=== PATIENT | female | born 1950 | race African-American/Black ===

== ENCOUNTER 2017-06-20 20:40 | Emergency (ER) | payer MEDICARE, OTHER ==
[~2017-06-20] VITALS: Ht 162.6 cm; Wt 69.4 kg
[~2017-06-20 20:40] MED LIST: BUPR300T52 PO; DULO60CA44 PO; LORA2TAB2 PO; ZOLP10TA6 PO
[2017-06-21] MEDS ORDERED: ACETAMINOPHEN 325MG TABLET PO ONE
[2017-06-21 05:08] VITALS: BP 120/75
== END 2017-06-21 05:10 | disposition home or self-care (01) ==
LOC: ER 20:40
DX: R55 Syncope and collapse (principal); S00.83XA Contusion of other part of head, initial encounter; W01.0XXA Fall on same level from slipping, tripping and stumbling without subsequent striking against object, initial encounter; R03.0 Elevated blood-pressure reading, without diagnosis of hypertension; Y93.H2 Activity, gardening and landscaping; Y92.017 Garden or yard in single-family (private) house as the place of occurrence of the external cause; Z86.59 Personal history of other mental and behavioral disorders; Z79.899 Other long term (current) drug therapy; F12.90 Cannabis use, unspecified, uncomplicated
CPT/HCPCS: 70450; 70486; 93005; 99284